=== PATIENT | male | born 1955 | race Caucasian/White ===

== ENCOUNTER → 2019-02-07 12:19 | Outpatient (CLI) | payer BC, SELFPAY ==
--- NOTE | 2019-02-07 12:27 | MRI_ITS ---
STUDY: MRI BRAIN WITH AND WITHOUT CONTRAST REASON FOR EXAM: Male, 63 years old. Dizziness, left-sided hearing loss. TECHNIQUE: Standardized multiplanar fat and water weighted pulse sequences were obtained. IV Dotarem 12 was administered for the contrast portion of the examination. COMPARISON: None. FINDINGS: There is moderate cerebral atrophy with widening of the extra-axial spaces and ventricular dilatation. There are a limited number of small white matter hyperintensities, distributed throughout the deep white matter tracts of the cerebral hemispheres, consistent with mild chronic white matter ischemic changes. There is no evidence for recent intracranial ischemia or other cause of cytotoxic edema on diffusion weighted imaging (DWI). Normal bilateral basal ganglia. Normal thalami. There is no extra-axial fluid accumulation. Normal flow voids within the major intracranial circulation suggesting patency by spin echo criteria. Normal venous enhancement. 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 Differential diagnosis includes a vestibular schwannoma (acoustic neuroma) stenosis, other schwannoma, ependymoma, or epidermoid. Normal sella turcica, pituitary gland, infundibular stalk, optic chiasm and hypothalamus. Normal tectal plate and pineal gland. Normal midbrain, tavo and medulla. Normal cerebellum. Normal basal cisterns. Normal bilateral temporal bones. Normal bilateral internal auditory canals. There are bilateral ocular lens implants with otherwise normal intraorbital contents. Normal visualized paranasal sinuses. Normal calvarium and skull base. Normal visualized soft tissue structures. Normal visualized upper cervical spine. 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 Difference diagnosis includes of vascular schwannoma (acoustic neuroma), another schwannoma, ependymoma, or epidermoid. Electronically Signed: Ian Valencia MD at 14:52 EST Tel , Service support ,
--- NOTE | 2019-02-07 12:46 | RAD_ITS ---
STUDY: X-RAY - ORBITS REASON FOR EXAM: Male, 63 years old. MRI clearance. TECHNIQUE: 2 view(s) of the orbits were obtained. COMPARISON: None. FINDINGS: Normal bilateral orbits without a metallic orbital foreign body. Normal visualized facial bones. Normal paranasal sinuses. The soft tissue structures are unremarkable. RAD/Orbits for Foreign Body IMPRESSION: No demonstrated metallic orbital foreign body. The patient is cleared for an MRI examination. Electronically Signed: Giacomo Anthony, at 13:17 EST , Service support ,
[2019-02-07 13:06] LABS: CREATININE FINGERSTICK < 0.6 mg/dL (0.70-1.30); EGFR FINGERSTICK > 60.0000 mL/min (>60)
== END ==
PROVIDERS: Family Provider Family Medicine; PCP Family Medicine; Referring Provider Otolaryngology; Visit Provider Otolaryngology
DX: Z01.818 Encounter for other preprocedural examination (principal); H91.22 Sudden idiopathic hearing loss, left ear; R27.0 Ataxia, unspecified
CPT/HCPCS: 70030; 70553